=== PATIENT | female | born 1985 | race African-American/Black ===

== ENCOUNTER 2024-04-10 13:59 | Inpatient (IN) | payer OTHER ==
[2024-04-10 15:20] VITALS: BMI 22.6
[2024-04-10] MEDS ORDERED: POLYETHYLENE GLYCOL (HEALTHYLAX) 3350 17 GM PACKET PO PRN (17:20)
[2024-04-10] MEDS ORDERED: hydrOXYzine PAMOATE 25 MG CAPSULE (FP) PO PRN (17:20)
[2024-04-10] MEDS ORDERED: NALOXONE (NARCAN) HCL 4 MG/0.1 ML SPRAY NS PRN (17:20)
[2024-04-10] MEDS ORDERED: guaiFENesin 600 MG TABLET.ER (FP) PO PRN (17:20)
[2024-04-10] MEDS ORDERED: IBUPROFEN 400 MG TABLET (FP) PO PRN (17:20)
[2024-04-10] MEDS ORDERED: ONDANSETRON *ODT* 4 MG TABLET SL PRN (17:20)
[2024-04-10] MEDS ORDERED: ACETAMINOPHEN 325 MG TABLET (FP) PO PRN (17:20)
[2024-04-10] MEDS ORDERED: IBUPROFEN 600 MG TABLET (FP) PO PRN (17:20)
[2024-04-10] MEDS ORDERED: BENZOCAINE/MENTHOL (CHLORASEPTIC ) LOZENGE MM PRN (17:20)
[2024-04-10] MEDS ORDERED: NALOXONE HCL 0.4 MG/ML VIAL IM PRN (17:20)
[2024-04-10] MEDS ORDERED: METHOCARBAMOL 500 MG TABLET PO PRN (17:20)
[2024-04-10] MEDS ORDERED: LOPERAMIDE HCL 2 MG CAPSULE PO PRN (17:20)
[2024-04-10] MEDS ORDERED: BENZONATATE 200 MG CAPSULE PO PRN (17:20)
[2024-04-10] MEDS ORDERED: MAGNESIUM HYDROX 2400MG/30ML ORAL SUSPENSION 30 ML CUP PO PRN (17:20)
[2024-04-10] MEDS ORDERED: DICYCLOMINE HCL 10 MG CAPSULE PO PRN (17:20)
[2024-04-10] MEDS ORDERED: BISMUTH SUBSALICYLATE 524 MG/30 ML PO PRN (17:20)
[2024-04-10] MEDS ORDERED: diazePAM 5 MG TABLET ONE ×2 (17:49→23:25)
[2024-04-10] MEDS: diazePAM 5 MG TABLET PO PRN (17:52)
[2024-04-10] MEDS ORDERED: ALBUTEROL SO4 HFA INHALER IH PRN (19:42)
[2024-04-10] MEDS: levETIRAcetam 250 MG TABLET PO SCH (21:38)
[2024-04-10] MEDS: THIAMINE 100 MG TABLET PO SCH (21:38)
[2024-04-10] MEDS: MELATONIN 5 MG TABLETS PO SCH (21:39)
[2024-04-10] MEDS: levETIRAcetam 250 MG TABLET PO ONE (21:40)
[2024-04-10] MEDS: diazePAM 5 MG TABLET PO SCH (23:28)
[2024-04-11] MEDS ORDERED: diazePAM 5 MG TABLET ONE ×2 (05:30→11:35)
[2024-04-11] MEDS: INSULIN ASPART SLIDING SCALE (NOVOLOG) 1 VIAL SQ SCH (07:53)
[2024-04-11] MEDS: metFORMIN HCL 500 MG TABLET (FP) PO SCH (08:54)
[2024-04-11] MEDS ORDERED: PRENATAL VITAMINS W/ FOLIC ACID TABLET (FP) PO ONE (09:31)
[2024-04-11] MEDS: PRENATAL VITAMINS W/ FOLIC ACID TABLET (FP) PO SCH (09:34)
[2024-04-11 13:19] LABS: HEMATOCRIT 36.9 % (32.4-45.2); HEMOGLOBIN 11.7 GM/dL (10.7-15.3); MCH 28.6 pg (25.7-33.7); MCHC 31.8 g/dl (32.0-36.0); MEAN CELL VOLUME 89.9 fl (80-96); MEAN PLT VOLUME 7.1 fl (7.5-11.1); PLATELET COUNT 407 10^3/uL (134-434); RBC 4.11 M/mm3 (3.60-5.2); RDW 14.1 % (11.6-15.6)
[2024-04-11 13:53] LABS: CHLORIDE 111 mmol/L (98-107); POTASSIUM 4.1 mmol/L (3.5-5.1); SODIUM 141 mmol/L (136-145)
[2024-04-11 13:56] LABS: ANION GAP 7 mmol/L (4-13); BLOOD UREA NITROGEN 16.2 mg/dL (7-18); CALCIUM 9.1 mg/dL (8.5-10.1); CO2 24 mmol/L (21-32); GLUCOSE,RANDOM 80 mg/dL (74-106)
[2024-04-11 13:59] LABS: CREATININE 0.6 mg/dL (0.55-1.3); SGOT/AST 18 U/L (15-37); SGPT/ALT 20 U/L (13-61)
[2024-04-11 14:01] LABS: BILIRUBIN,TOTAL 0.2 mg/dL (0.2-1); TOT PROT 5.6 g/dl (6.4-8.2)
[2024-04-11 14:02] LABS: ALK PHOS 50 U/L (45-117)
[2024-04-12] MEDS: diazePAM 5 MG TABLET PO SCH (05:57)
[2024-04-12 09:33] VITALS: PULSE 83; RESP 18
[2024-04-12] MEDS: MAG HYDROX/AL HYDROX/SIMETH 30 ML UNIT-DOSE CUP PO PRN (10:36)
[2024-04-12 13:15] VITALS: BP 102/60; TEMP 98
[2024-04-13] MEDS ORDERED: diazePAM 5 MG TABLET PO SCH (06:00)
[2024-04-14] MEDS ORDERED: diazePAM 5 MG TABLET PO ONE (06:00)
== END 2024-04-12 15:55 | disposition left against medical advice (07) | DRG 770 ==
LOC: YASAS 13:59 → Y6N 04-11 13:17
PROVIDERS: ADMIT Allergy & Immunology; ATTEND Surgery
PROC: HZ2ZZZZ Detoxification Services for Substance Abuse Treatment (ICD-10-PCS; principal; 2024-04-11)
DX: F10.230 Alcohol dependence with withdrawal, uncomplicated (principal); F14.20 Cocaine dependence, uncomplicated; F12.20 Cannabis dependence, uncomplicated; F17.210 Nicotine dependence, cigarettes, uncomplicated; F19.24 Other psychoactive substance dependence with psychoactive substance-induced mood disorder; G40.909 Epilepsy, unspecified, not intractable, without status epilepticus; I10 Essential (primary) hypertension; J45.909 Unspecified asthma, uncomplicated; E11.9 Type 2 diabetes mellitus without complications; Z79.84 Long term (current) use of oral hypoglycemic drugs; Z56.0 Unemployment, unspecified; Z59.00 Homelessness unspecified; Z88.0 Allergy status to penicillin
CPT/HCPCS: 36415; 80053; 80305; 80307; 81025; 82962; 85027; 86780; 93005; 93010

== ENCOUNTER 2024-06-01 15:32 | Inpatient (IN) | payer OTHER ==
[2024-06-01 16:30] VITALS: BMI 24.0
[2024-06-01] MEDS ORDERED: NICOTINE POLACRILEX 2 MG LOZENGE BC PRN (17:45)
[2024-06-01] MEDS ORDERED: MAG HYDROX/AL HYDROX/SIMETH 30 ML UNIT-DOSE CUP PO PRN (17:45)
[2024-06-01] MEDS ORDERED: LOPERAMIDE HCL 2 MG CAPSULE PO PRN (17:45)
[2024-06-01] MEDS ORDERED: P-EPHED 60MG/TRIPROLIDI 2.5MG TABLET PO PRN (17:45)
[2024-06-01] MEDS ORDERED: NICOTINE POLACRILEX 2 MG GUM BUC PRN (17:45)
[2024-06-01] MEDS ORDERED: BISMUTH SUBSALICYLATE 524 MG/30 ML PO PRN (17:45)
[2024-06-01] MEDS ORDERED: POLYETHYLENE GLYCOL (HEALTHYLAX) 3350 17 GM PACKET PO PRN (17:45)
[2024-06-01] MEDS ORDERED: DICYCLOMINE HCL 10 MG CAPSULE PO PRN (17:45)
[2024-06-01] MEDS ORDERED: ACETAMINOPHEN 325 MG TABLET (FP) PO PRN (17:45)
[2024-06-01] MEDS ORDERED: MAGNESIUM HYDROX 2400MG/30ML ORAL SUSPENSION 30 ML CUP PO PRN (17:45)
[2024-06-01] MEDS ORDERED: guaiFENesin 600 MG TABLET.ER (FP) PO PRN (17:45)
[2024-06-01] MEDS ORDERED: ONDANSETRON *ODT* 4 MG TABLET SL PRN (17:45)
[2024-06-01] MEDS ORDERED: IBUPROFEN 400 MG TABLET (FP) PO ONE (18:38)
[2024-06-01] MEDS: IBUPROFEN 400 MG TABLET (FP) PO PRN (18:40)
[2024-06-01] MEDS: THIAMINE 100 MG TABLET PO SCH (22:50)
[2024-06-01] MEDS: levETIRAcetam 500 MG TABLET (FP) PO SCH (22:50)
[2024-06-01] MEDS: METHOCARBAMOL 500 MG TABLET PO PRN (22:50)
[2024-06-01] MEDS: MELATONIN 5 MG TABLETS PO SCH (22:50)
[2024-06-02] MEDS: BENZONATATE 200 MG CAPSULE PO PRN (03:42)
[2024-06-02] MEDS: hydrOXYzine PAMOATE 25 MG CAPSULE (FP) PO PRN (05:58)
[2024-06-02] MEDS: IBUPROFEN 600 MG TABLET (FP) PO PRN (05:58)
[2024-06-02] MEDS: BENZOCAINE/MENTHOL (CHLORASEPTIC ) LOZENGE MM PRN (08:27)
[2024-06-02] MEDS ORDERED: ALBUTEROL SO4 HFA INHALER IH PRN (09:09)
[2024-06-02] MEDS: PRENATAL VITAMINS W/ FOLIC ACID TABLET (FP) PO SCH (10:09)
[2024-06-02] MEDS ORDERED: chlordiazePOXIDE HCL 25 MG CAPSULE PO PRN (10:46)
[2024-06-02] MEDS: chlordiazePOXIDE HCL 25 MG CAPSULE PO SCH (11:12)
[2024-06-02] MEDS: FAMOTIDINE 20 MG TABLET PO SCH (11:12)
[2024-06-02] MEDS: GABAPENTIN 100 MG CAPSULE PO SCH (11:12)
[2024-06-02] MEDS: LIDOCAINE 5% TOPICAL PATCH TP SCH (11:12)
[2024-06-02 12:36] LABS: HEMATOCRIT 34.1 % (32.4-45.2); HEMOGLOBIN 11.2 GM/dL (10.7-15.3); MCH 29.1 pg (25.7-33.7); MCHC 32.7 g/dl (32.0-36.0); MEAN CELL VOLUME 88.8 fl (80-96); MEAN PLT VOLUME 7.4 fl (7.5-11.1); PLATELET COUNT 385 10^3/uL (134-434); RBC 3.84 M/mm3 (3.60-5.2); RDW 13.8 % (11.6-15.6); WHITE BLOOD COUNT 7.5 K/mm3 (4.0-10.0)
[2024-06-02 12:39] LABS: POTASSIUM 4.7 mmol/L (3.5-5.1)
[2024-06-02 12:41] LABS: CALCIUM 8.8 mg/dL (8.5-10.1)
[2024-06-02 12:42] LABS: ALBUMIN 3.4 g/dl (3.4-5.0); BLOOD UREA NITROGEN 13.6 mg/dL (7-18)
[2024-06-02 12:45] LABS: CREATININE 0.6 mg/dL (0.55-1.3)
[2024-06-02 12:47] LABS: BILIRUBIN,TOTAL 0.3 mg/dL (0.2-1); TOT PROT 5.9 g/dl (6.4-8.2)
[2024-06-02] MEDS: METHYL SALICYLATE/MENTHOL 30 GM TUBE TP SCH (22:15)
[2024-06-02] MEDS: LIDOCAINE PATCH REMOVAL MC SCH (22:15)
[2024-06-03] MEDS: chlordiazePOXIDE HCL 10 MG CAPSULE PO SCH (05:47)
[2024-06-03] MEDS: metFORMIN HCL 500 MG TABLET (FP) PO SCH (07:12)
[2024-06-03] MEDS: NALOXONE (NYS OPIOID OVERDOSE PROGRAM) 4 MG/0.1 ML SPRAY NS SCH (16:02)
[2024-06-04] MEDS: chlordiazePOXIDE HCL 10 MG CAPSULE PO SCH (05:55)
[2024-06-04 07:02] VITALS: RESP 16
[2024-06-04] MEDS: NALOXONE (NYS OPIOID OVERDOSE PROGRAM) 4 MG/0.1 ML SPRAY NS PRN (08:30)
[2024-06-04 09:10] VITALS: BP 114/70; PULSE 72; TEMP 98.2
[2024-06-05] MEDS ORDERED: chlordiazePOXIDE HCL 10 MG CAPSULE PO ONE (05:00)
== END 2024-06-04 08:50 | disposition home or self-care (01) | DRG 774 ==
LOC: YASAS 15:32 → Y6N 18:46
PROVIDERS: ADMIT Allergy & Immunology; ATTEND Allergy & Immunology
PROC: HZ2ZZZZ Detoxification Services for Substance Abuse Treatment (ICD-10-PCS; principal; 2024-06-01)
DX: F10.230 Alcohol dependence with withdrawal, uncomplicated (principal); F14.20 Cocaine dependence, uncomplicated; F12.20 Cannabis dependence, uncomplicated; F17.210 Nicotine dependence, cigarettes, uncomplicated; F19.282 Other psychoactive substance dependence with psychoactive substance-induced sleep disorder; F19.24 Other psychoactive substance dependence with psychoactive substance-induced mood disorder; G62.9 Polyneuropathy, unspecified; G40.909 Epilepsy, unspecified, not intractable, without status epilepticus; I10 Essential (primary) hypertension; K21.9 Gastro-esophageal reflux disease without esophagitis; E11.9 Type 2 diabetes mellitus without complications; Z79.84 Long term (current) use of oral hypoglycemic drugs; Z62.810 Personal history of physical and sexual abuse in childhood; Z88.0 Allergy status to penicillin; Z59.00 Homelessness unspecified
CPT/HCPCS: 0241U-QW; 36415; 71045-TC-FY; 80053; 80305; 80307; 81025; 82962; 85027; 86780